=== PATIENT | male | born 1955 | race Caucasian/White ===

== ENCOUNTER 2021-10-02 21:32 | Emergency (ER) | payer OTHER ==
[2021-10-02 22:34] VITALS: BP 135/64
[2021-10-02] MEDS ORDERED: SODIUM CHLORIDE 0.9% 1000 ML 1,000 ML IV ONE (22:40)
--- NOTE | 2021-10-02 22:44 | Emergency Department Report ---
ED General Adult HPI - General Chief complaint: Altered Mental Status Stated complaint: WEAKNESS Time Seen by Provider: 10/02/21 22:32 Source: EMS Mode of arrival: Stretcher Limitations: Language Barrier, Altered Mental Status - History of Present Illness Initial comments: Patient is a 66-year-old [place] male with history of gallbladder cancer with metastasis. Patient brought to the emergency room via EMS for evaluation of altered mental status. According to the EMS report patient is on morphine and family think that he took extra dose. EMS stated that patient initially was obtunded but he responded quickly to Narcan. Upon arrival to the ER patient is alert, oriented x3 no acute distress. Stroke scale is 0. - Related Data Allergies Allergy/AdvReac Type Severity Reaction Status Date / Time No Known Allergies Allergy Verified 10/02/21 22:56 ED Review of Systems ROS: Stated complaint: WEAKNESS Other details as noted in HPI Comment: All other systems reviewed and negative Constitutional: denies: chills, fever Respiratory: denies: cough, shortness of breath, SOB with exertion Cardiovascular: palpitations. denies: chest pain Gastrointestinal: abdominal pain. denies: nausea, vomiting Musculoskeletal: denies: back pain ED Physical Exam - General Limitations: Language Barrier, Altered Mental Status General appearance: alert, in no apparent distress - Head Head exam: Present: atraumatic, normocephalic, normal inspection - Eye Eye exam: Present: normal appearance - ENT ENT exam: Present: normal exam, normal orophraynx, mucous membranes moist - Neck Neck exam: Present: normal inspection, full ROM. Absent: tenderness, meningismus - Respiratory Respiratory exam: Present: normal lung sounds bilaterally - Cardiovascular Cardiovascular Exam: Present: tachycardia. Absent: systolic murmur, diastolic murmur - GI/Abdominal GI/Abdominal exam: Present: soft, normal bowel sounds. Absent: distended, tenderness, guarding, rebound - Extremities Exam Extremities exam: Present: normal inspection - Back Exam Back exam: Present: normal inspection, full ROM. Absent: CVA tenderness (R), CVA tenderness (L) - Neurological Exam Neurological exam: Present: alert, oriented X3, CN II-XII intact. Absent: motor sensory deficit - Psychiatric Psychiatric exam: Present: normal mood - Skin Skin exam: Present: warm, intact, normal color ED Course Vital Signs 10/02/21 22:31 Temperature 98.7 F Pulse Rate 114 H Respiratory 14 Rate Blood Pressure 135/64 [Right] O2 Sat by Pulse 97 Oximetry ED Medical Decision Making - Lab Data Result diagrams: 10/02/21 22:46 10/02/21 22:46 - Medical Decision Making Patient is a 66-year-old [place] male with history of gallbladder cancer with metastasis. Patient currently on chemotherapy. Patient brought to the emergency room via EMS for evaluation of altered mental status. According to the EMS report patient is on morphine and family think that he took extra dose. EMS stated that patient initially was obtunded but he responded quickly to Narcan. Upon arrival to the ER patient is alert, oriented x3 no acute distress. Stroke scale is 0. Patient remained stable in the ER with a stable vital sign. Labs reviewed and showed a lactic acid of 4.1. Patient received normal saline. Patient is Asking for pain medication, I explained to the patient and his daughter that he overdose on his medication and is not safe to give him any pain medicine at this moment. Patient has been observed in the ER for more than 7 hours. Patient advised to follow-up with his primary care physician in the next 2 to 3 days and to return to the ER if he develop any new symptoms. Critical care attestation.: If time is entered above; I have spent that time in minutes in the direct care of this critically ill patient, excluding procedure time. ED Disposition Clinical Impression: Narcotic overdose, Lactic acidosis, Dehydration Disposition: 01 HOME / SELF CARE / HOMELESS Is pt being admited?: No Condition: Stable Instructions: Opioid Overdose, Metabolic Acidosis, Dehydration, Adult, [id number] Referrals: RICCARDO DURANT MD [Primary Care Provider] - 3-5 Days
[2021-10-03 02:39] LABS: BUN/Creatinine Ratio 25; Blood Urea Nitrogen 25 mg/dL (9-20); Hemolysis Index 13
[2021-10-03 02:46] LABS: Hematocrit 30.7 % (35.5-45.6); Mean Corpuscular HGB Conc 32 % (32-34); Red Blood Count 4.43 M/mm3 (3.65-5.03); Red Cell Distribution Width 15.4 % (13.2-15.2)
[2021-10-03 02:56] LABS: Mean Corpuscular Volume 69 fl (84-94); Platelet Count 24 K/mm3 (140-440)
[2021-10-03 03:16] LABS: Bacteria,Urine 1+ /HPF (Negative); Bilirubin,Urine NEG (Negative); Blood,Urine SM (Negative); Color,Urine Amber (Yellow); Mucus,Urine FEW /HPF
[2021-10-03 03:28] LABS: Amphetamine Screen,Urine PRESUMPTIVE NEGATIVE; Benzodiazepines Screen,Urine PRESUMPTIVE NEGATIVE; Cannabinoid Screen,Urine PRESUMPTIVE NEGATIVE; Cocaine Screen,Urine PRESUMPTIVE NEGATIVE; Methadone Screen,Urine PRESUMPTIVE NEGATIVE; Opiate Screen,Urine PRESUMPTIVE POSITIVE
[2021-10-03] MEDS ORDERED: SODIUM CHLORIDE 0.9% 1000 ML 1,000 ML ONE (03:51)
[2021-10-03] MEDS ORDERED: SODIUM CHLORIDE 0.9% 1000 ML 1,000 ML IV ONE (03:53)
[2021-10-03 04:03] LABS: Anisocytosis Few; Basophils % (Manual) 0 % (0.0-1.8); Eosinophils % (Manual) 0 % (0.0-4.3); Total Cells Counted 100
[2021-10-03 04:04] LABS: Hypochromasia 1+
== END 2021-10-03 05:30 | disposition home or self-care (01) ==
LOC: ED 21:32
DX: T40.601A Poisoning by unspecified narcotics, accidental (unintentional), initial encounter (principal); E87.2 Acidosis; E86.0 Dehydration; Y92.89 Other specified places as the place of occurrence of the external cause
CPT/HCPCS: 36415; 80048; 80307; 81001; 82140; 85007; 85025; 96360; 96361; 99284; J7030; 80320; Q0162; G0480